=== PATIENT | male | born 1990 | race American Indian/Alaskan Native ===

== ENCOUNTER 2019-01-13 12:07 | Emergency (ER) | payer SELFPAY ==
[2019-01-13 12:15] VITALS: BP 129/81
--- NOTE | 2019-01-13 12:55 | Emergency Department Report ---
Chief Complaint: Extremity Injury, Upper Stated Complaint: POSS STAPH INFECTION - HPI History of Present Illness: staph infection of left arm open wounds noted VSS no cp no sob MSE completed - Exam Vital Signs: Vital Signs 01/13/19 12:14 Temperature 98.2 F Pulse Rate 63 Respiratory 16 Rate Blood Pressure 129/81 O2 Sat by Pulse 99 Oximetry MSE screening note: Focused history and physical exam performed. Due to findings the following was ordered: ED Disposition for MSE Condition: Stable
[2019-01-13] MEDS ORDERED: APRESOLINE ONE (13:32)
[2019-01-13 13:49] LABS: Hematocrit 46.1 % (35.5-45.6); Hemoglobin 15.2 gm/dl (11.8-15.2); Mean Corpuscular HGB Conc 33 % (32-34); Mean Corpuscular Volume 92 fl (84-94); Platelet Count 281 K/mm3 (140-440); Red Cell Distribution Width 13.7 % (13.2-15.2)
[2019-01-13 14:04] LABS: BUN/Creatinine Ratio 11; Blood Urea Nitrogen 10 mg/dL (9-20); Calcium 9.5 mg/dL (8.4-10.2); Hemolysis Index 7
--- NOTE | 2019-01-13 14:50 | Emergency Department Report ---
ED Rash HPI - HPI Chief Complaint: Extremity Injury, Upper Stated Complaint: POSS STAPH INFECTION Time Seen by Provider: 01/13/19 12:56 Duration: 3 Days Location: Upper Extremities (left forearm, left lateral abdomen, left finger with swelling and redness and tenderness around nailbed) Suspected Cause: Unknown (4 left forearm and abdomen), Other (reports that he had paper cut to his left pointer finger that got infected) Rash Symptoms: Yes Itching (burning pain to the left forearm and abdomen that 3/10 and burning), Yes Blistering (left forearm and left abdomen), Yes Myalgias (left forearm and left abdomen), No Facial Swelling, No Tongue/Oral Swelling, No Breathing Difficulties, No Wheezing/Dyspnea, No Peeling, No Fever, No Lightheaded, No Malaise Severity: mild Other History: This is a 28-year-old male here report that he has rash to his left forearm that he thinks his staph and he also showed no one in his left stomach. He said that it has been there for about 3 days and it is red with some bumps and he looked in glucose and glucose that was staff. He also said he Injured his left pointer finger and then area around 8 pounds red swelling. Denies any drainage. Tetanus vaccine is up-to-date. ED Review of Systems ROS: Stated complaint: POSS STAPH INFECTION Other details as noted in HPI Constitutional: denies: chills, fever Eyes: denies: eye pain ENT: denies: ear pain, throat pain, congestion Respiratory: denies: cough, shortness of breath, stridor, wheezing Cardiovascular: denies: chest pain, palpitations Gastrointestinal: denies: nausea, vomiting Musculoskeletal: arthralgia (left pointer finger), myalgia. denies: back pain, joint swelling Skin: rash (left forearm and left abdomen), lesions, pruritus Neurological: paresthesias (left forearm and). denies: headache, numbness, abnormal gait, vertigo ED Past Medical Hx - Past Medical History Previous Medical History?: No - Surgical History Past Surgical History?: No - Family History Family history: hypertension - Social History Smoking Status: Current Every Day Smoker Substance Use Type: None - Medications Home Medications: Home Medications Medication Instructions Recorded Confirmed Last Taken Type Acyclovir [Zovirax Tab] 800 mg PO Q8H 7 Days #21 tablet 01/13/19 Unknown Rx Ibuprofen [Motrin] 800 mg PO Q8HR PRN #12 tablet 01/13/19 Unknown Rx cephALEXin [Keflex] 500 mg PO Q8HR 10 Days #30 cap 01/13/19 Unknown Rx hydrOXYzine HCL [Atarax] 25 mg PO Q6HR PRN #20 tablet 01/13/19 Unknown Rx Rash Exam - Exam General: Vital signs noted. No distress. Alert and acting appropriately. This is a 28-year-old male well-nourished well-developed no acute distress. HEENT: No Periorbital Edema, No Conjuctival Injection, No Chemosis, No Perioral Edema, No Tongue Edema, No Uvular Edema, No Compromised Airway, No Drooling Lungs: Yes Good Air Exchange, No Wheezes, No Ronchi, No Stridor, No Cough, No Labored Respirations, No Retractions, No Use of Accessory Muscles, No Other Abnormal Lung Sounds Skin: Yes Tenderness (left index finger and nailbed, mild erythema, induration without any fluctuance, small scratch frank noted the palmar side.), Yes Erythema (left index finger around nailbed. Left forearm and left abdomen with erythema and small surrounding vesicles. 2 noted to left forearm and area to left abdomen), Yes Edema (left index finger), Yes Other (patient with vesicular rash left forearm and left abdomen with erythema and tenderness to palpate and with indurated area to left index finger distally that appears to be Protonix here.), No Urticarial Rash, No Maculopapular Rash, No Morbilliform rash, No Bulla(e), No Excoriations, No Weeping, No Encrustations Other: Positive: Abdomen Normal (normal exam), Neurologic Normal (normal exam), Musculoskeletal Normal (normal exam) ED Course Vital Signs 01/13/19 12:14 Temperature 98.2 F Pulse Rate 63 Respiratory 16 Rate Blood Pressure 129/81 O2 Sat by Pulse 99 Oximetry - Reevaluation(s) Reevaluation #1: 01/13/19 15:05 Patient given acyclovir 800 mg emergency room, Motrin 800 mg and Keflex 500 mg by mouth ED Medical Decision Making - Lab Data Result diagrams: 01/13/19 13:32 01/13/19 13:32 Lab Results 01/13/19 01/13/19 Range/Units 13:32 13:32 WBC 6.0 (4.5-11.0) K/mm3 RBC 5.00 (3.65-5.03) M/mm3 Hgb 15.2 (11.8-15.2) gm/dl Hct 46.1 H (35.5-45.6) % MCV 92 (84-94) fl MCH 30 (28-32) pg MCHC 33 (32-34) % RDW 13.7 (13.2-15.2) % Plt Count 281 (140-440) K/mm3 Sodium 143 (137-145) mmol/L Potassium 4.8 (3.6-5.0) mmol/L Chloride 103.7 (98-107) mmol/L Carbon Dioxide 26 (22-30) mmol/L Anion Gap 18 mmol/L BUN 10 (9-20) mg/dL Creatinine 0.9 (0.8-1.5) mg/dL Estimated GFR > 60 ml/min BUN/Creatinine Ratio 11 % Glucose 110 H (75-100) mg/dL Calcium 9.5 (8.4-10.2) mg/dL - Medical Decision Making This is a 28-year-old male patient found to have shingles to left forearm and probably he had to left index finger. I discussed the patient diagnosis and treatment plan. I told him he will need to follow up with [facility] for further management. He was given a prescription for hydroxyzine, ibuprofen, acyclovir and Keflex. I discussed with him if he gets worse to return to emergency room otherwise follow-up with [facility] and [facility]. Patient was given Boostrix 0.5 mL to update tetanus and ibuprofen 800 mg emergency room which relieved this pain. He is in no acute distress upon discharge. Critical care attestation.: If time is entered above; I have spent that time in minutes in the direct care of this critically ill patient, excluding procedure time. ED Disposition Clinical Impression: Paronychia of left index finger Shingles outbreak Qualifiers: Herpes zoster complications: without complications Qualified Code(s): B02.9 - Zoster without complications Disposition: DC-01 TO HOME OR SELFCARE Is pt being admited?: No Does the pt Need Aspirin: No Condition: Stable Instructions: Herpes Zoster (ED), Paronychia (ED) Additional Instructions: Please keep affected areas clean and dry Take acyclovir as prescribed for shingles Take Keflex for Protonix he had to your left index finger Apply warm compresses the left index finger 3-4 times a day for 15 minutes at a time to help soften up infected area and facilitate drainage. Follow-up with primary care physician in 3 days and if he does not have a [facility] physician follow-up at [facility] Practice good hand hygiene. Take Atarax for itching Take Motrin for pain Prescriptions: Acyclovir [Zovirax Tab] 800 mg PO Q8H 7 Days #21 tablet cephALEXin [Keflex] 500 mg PO Q8HR 10 Days #30 cap hydrOXYzine HCL [Atarax] 25 mg PO Q6HR PRN #20 tablet PRN Reason: Itching Ibuprofen [Motrin] 800 mg PO Q8HR PRN #12 tablet PRN Reason: pain Referrals: PRIMARY CAREMD [Referring] - 3-5 Days DEMLIS LOUISE MD [Staff Physician] - 3-[address] [facility] [Outside] - 3-5 Days Forms: Work/School Release Form(ED)
[2019-01-13] MEDS ORDERED: IBUPROFEN PO ONE (14:51)
[2019-01-13] MEDS ORDERED: KEFLEX PO ONE (14:52)
[2019-01-13] MEDS ORDERED: BOOSTRIX IM ONE (15:01)
[2019-01-13] MEDS ORDERED: ZOVIRAX PO ONE (15:30)
== END 2019-01-13 15:35 | disposition home or self-care (01) ==
LOC: ED 12:07
DX: B02.9 Zoster without complications (principal); L03.012 Cellulitis of left finger; F17.200 Nicotine dependence, unspecified, uncomplicated; Z88.2 Allergy status to sulfonamides
CPT/HCPCS: 36415; 80048; 85027; 90471; 90715; 99283; J0360